=== PATIENT | female | born 1985 | race Caucasian/White ===

== ENCOUNTER 2017-01-24 14:11 | Emergency (ER) | payer SELFPAY ==
--- NOTE | 2017-01-24 15:05 | ER Document Report ---
ED Medical Screen (RME) - General Time seen by provider: 15:03 Mode of Arrival: Ambulatory - General Chief Complaint: Flu Symptoms Stated Complaint: COUGH Notes: 32-year-old female presents to ED for flulike symptoms with a sore throat since Sunday. They got worse 3 days ago. I have greeted and performed a rapid initial assessment of this patient. A comprehensive ED assessment and evaluation of the patient, analysis of test results and completion of medical decision making process will be conducted by an additional ED providers. (RADAMES PEREZ) - Related Data Allergies/Adverse Reactions: No Known Allergies Allergy (Unverified 01/24/17 15:03) Doctor's Discharge - Discharge Clinical Impression: Viral illness Condition: Stable Disposition: HOME, SELF-CARE Instructions: Acetaminophen, Viral Syndrome ([facility]) Additional Instructions: Viral Syndrome The physician has diagnosed a viral infection. Viruses not only cause "colds," but can cause many different symptoms including generalized aching, fever, headache, cough, diarrhea, nausea, vomiting, and fatigue. The treatment, for the most part, is simply relief of symptoms. This means that antibiotics are usually not given. Rest, fluids, pain medications and, occasionally, medication for the specific symptoms that are most bothersome will be prescribed. Use good handwashing to avoid passing the virus to others. Shared toys should be cleaned with disinfectant. Clean the toilets, sinks, and counter surfaces in bathrooms. Launder clothing in hot water. Contact the physician if you develop any new or unusual symptoms such as severe headache, stiff neck, high fever, chest pain, productive cough, or shortness of breath. You should be rechecked if you don't see marked improvement within seven to 10 days. Forms: Return to Work Referrals: [facility] [Provider Group] - Follow up in 3-5 days (Return to the ER sooner for increasing worsening or new symptoms)
[2017-01-24 16:56] LABS: APPEARANCE,URINE SLIGHTLY-CLOUDY; BILIRUBIN,URINE NEGATIVE (NEGATIVE); GLUCOSE, URINE NEGATIVE (NEGATIVE); KETONES,URINE 20 mg/dL (NEGATIVE); LEUKOCYTE ESTERASE,URINE NEGATIVE (NEGATIVE); NITRITE,URINE NEGATIVE (NEGATIVE); PROTEIN,URINE 30 mg/dL (NEGATIVE); URINE SPECIFIC GRAVITY 1.027
--- NOTE | 2017-01-24 17:34 | ER Document Report ---
ED General - General Mode of Arrival: Ambulatory Information source: Patient TRAVEL OUTSIDE OF THE [place] IN LAST 30 DAYS: No - HPI Patient complains to provider of: Body Aches Onset: Other - 5 days ago Associated symptoms: Other - see above - General Chief Complaint: Flu Symptoms Stated Complaint: COUGH Notes: 32-year-old female with history of heroin substance abuse presents to the ED complaining of generalized body aches, congestion, and cough for the past 5 days. Patient states that her body aches are "worse than usual". She states that she is and postacute withdrawal from her heroin. She last used on 2016. Patient is currently on Suboxone, prazosin, and Adderall. Patient has a history of aspiration pneumonia 1 year ago. (NADEEM CHAPARRO) - Related Data Allergies/Adverse Reactions: No Known Allergies Allergy (Unverified 01/24/17 15:03) Past Medical History - General Information source: Patient - Social History Smoking Status: Current Every Day Smoker Frequency of alcohol use: None Drug Abuse: Heroin - past Family History: Reviewed & Not Pertinent Patient has suicidal ideation: No Patient has homicidal ideation: No Pulmonary Medical History: Reports: Hx Pneumonia - aspiration in 2016 Renal/ Medical History: Denies: Hx Peritoneal Dialysis Surgical Hx: Negative Review of Systems - Review of Systems Constitutional: See HPI, Malaise EENT: See HPI, Nose congestion Cardiovascular: No symptoms reported Respiratory: See HPI, Cough Gastrointestinal: No symptoms reported Genitourinary: No symptoms reported Female Genitourinary: No symptoms reported Musculoskeletal: No symptoms reported Skin: No symptoms reported Hematologic/Lymphatic: No symptoms reported Neurological/Psychological: No symptoms reported -: Yes All other systems reviewed and negative Physical Exam - General General appearance: Alert In distress: None - HEENT Head: Normocephalic, Atraumatic Eyes: Normal Extraocular movements intact: Yes Pupils: PERRL Mouth/Lips: Normal Pharynx: Normal - Respiratory Respiratory status: No respiratory distress Breath sounds: Rhonchi - bilateral, Wheezing - occassional. No: Normal - Cardiovascular Rhythm: Regular Heart sounds: Normal auscultation - Abdominal Inspection: Normal Distension: No distension Tenderness: Nontender - Back Back: Normal - Extremities General upper extremity: Normal inspection, Normal ROM General lower extremity: Normal inspection, Normal ROM - Neurological Neuro grossly intact: Yes Cognition: Normal Orientation: AAOx4 [place] Coma Scale Eye Opening: Spontaneous Valeria Coma Scale Verbal: Oriented Val[place] Coma Scale Motor: Obeys Commands Valeria Coma Scale Total: 15 Speech: Normal - Psychological Associated symptoms: Normal affect, Normal mood - Skin Skin Temperature: Warm Skin Moisture: Dry Skin Color: Normal Course - Re-evaluation Re-evalutation: 01/24/17 18:27 I personally performed the services described in the documentation, reviewed and edited the documentation which was dictated to my scribe in my presence, and it accurately records my words and actions. Patient presents with a three-day history of cough congestion nasal drainage mucous cold sweaty and weak dehydrated nausea but no vomiting no chance of . 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 She says she hasn't used since she right 20th she is well-appearing nontoxic afebrile slightly tachycardic initially on arrival improved at the bedside. She denies being in withdrawal. Chest x-ray labs flu all negative for DC upper respiratory illness supportive care and discussed reasons for ED return sooner (STEPHANIE NELSON) - Vital Signs Vital signs: Temp Pulse Resp BP Pulse Ox 98.6 F 67 16 118/67 99 01/24/17 18:40 01/24/17 18:40 01/24/17 18:40 01/24/17 18:40 01/24/17 18:40 - Laboratory Laboratory results interpreted by me: 01/24/17 16:25 Urine Protein 30 H Urine Ketones 20 H Urine Urobilinogen 4.0 H Discharge - Discharge Clinical Impression: Viral infection Condition: Stable Disposition: HOME, SELF-CARE Instructions: Acetaminophen, Viral Syndrome ([facility]) Additional Instructions: Viral Syndrome The physician has diagnosed a viral infection. Viruses not only cause "colds," but can cause many different symptoms including generalized aching, fever, headache, cough, diarrhea, nausea, vomiting, and fatigue. The treatment, for the most part, is simply relief of symptoms. This means that antibiotics are usually not given. Rest, fluids, pain medications and, occasionally, medication for the specific symptoms that are most bothersome will be prescribed. Use good handwashing to avoid passing the virus to others. Shared toys should be cleaned with disinfectant. Clean the toilets, sinks, and counter surfaces in bathrooms. Launder clothing in hot water. Contact the physician if you develop any new or unusual symptoms such as severe headache, stiff neck, high fever, chest pain, productive cough, or shortness of breath. You should be rechecked if you don't see marked improvement within seven to 10 days. Forms: Return to Work Referrals: [facility] [Provider Group] - Follow up in 3-5 days (Return to the ER sooner for increasing worsening or new symptoms) Scribe Documentation - Scribe Written by Kailee:: Kailee Addison, 01/24/20172020 acting as scribe for :: Magan
[2017-01-24 18:51] VITALS: BP 118/67
== END 2017-01-24 18:40 | disposition home or self-care (01) ==
LOC: ER 14:11
DX: B34.9 Viral infection, unspecified (principal); R05 Cough; R09.81 Nasal congestion; E86.0 Dehydration; R53.81 Other malaise; R06.2 Wheezing; R00.0 Tachycardia, unspecified; R61 Generalized hyperhidrosis; J34.89 Other specified disorders of nose and nasal sinuses; R53.1 Weakness; R11.0 Nausea; R52 Pain, unspecified; F17.200 Nicotine dependence, unspecified, uncomplicated; F11.21 Opioid dependence, in remission; Z79.891 Long term (current) use of opiate analgesic; Z87.01 Personal history of pneumonia (recurrent); Z79.899 Other long term (current) drug therapy
CPT/HCPCS: 71020; 81001; 87070; 87804; 87880; 99283

== ENCOUNTER 2017-02-12 20:48 | Emergency (ER) | payer SELFPAY ==
[2017-02-12 21:28] VITALS: BP 142/95
--- NOTE | 2017-02-13 00:10 | ER Document Report ---
ED Medical Screen (RME) - General Chief Complaint: Probable Seizure Stated Complaint: SEIZURE Mode of Arrival: Ambulatory Information source: Patient Notes: Pt presents with reports shes been having at least 5 seizures. She reports history of one seizure last year when she was coming off Xanax. She reports she feels like an electric shock is going thru her body. Reports it comes/goes. TRAVEL OUTSIDE OF THE [place] IN LAST 30 DAYS: No - Related Data Allergies/Adverse Reactions: No Known Allergies Allergy (Unverified 01/24/17 15:03) Past Medical History Pulmonary Medical History: Reports: Hx Pneumonia - aspiration in 2016 Renal/ Medical History: Denies: Hx Peritoneal Dialysis Physical Exam - Vital signs Vitals: Temp Pulse BP Pulse Ox 98.1 F 98 142/95 H 100 02/12/17 21:27 02/12/17 21:27 02/12/17 21:27 02/12/17 21:27 Course - Vital Signs Vital signs: Temp Pulse Resp BP Pulse Ox 98.1 F 98 142/95 H 100 02/12/17 21:27 02/12/17 21:27 02/12/17 21:27 02/12/17 21:27
== END 2017-02-13 00:20 | disposition left against medical advice (07) ==
LOC: ER 20:48
DX: R56.9 Unspecified convulsions (principal); Z53.20 Procedure and treatment not carried out because of patient's decision for unspecified reasons
CPT/HCPCS: 99281

== ENCOUNTER 2017-02-13 21:44 | Emergency (ER) | payer SELFPAY ==
[2017-02-14 04:25] LABS: APPEARANCE,URINE CLOUDY; BILIRUBIN,URINE NEGATIVE (NEGATIVE); GLUCOSE, URINE NEGATIVE (NEGATIVE); KETONES,URINE TRACE mg/dL (NEGATIVE); LEUKOCYTE ESTERASE,URINE MODERATE (NEGATIVE); NITRITE,URINE NEGATIVE (NEGATIVE); PROTEIN,URINE NEGATIVE (NEGATIVE); URINE SPECIFIC GRAVITY 1.018; UROBILINOGEN,URINE NEGATIVE mg/dL (<2.0)
[2017-02-14 04:38] LABS: URINE BARBITURATES SCREEN NEGATIVE; URINE METHADONE SCREEN NEGATIVE; URINE OPIATES LOW NEGATIVE; URINE PHENCYCLIDINE SCREEN NEGATIVE
[2017-02-14] MEDS ORDERED: NORMAL SALINE 1000 ML 1,000 ML IV PRN (06:22)
[2017-02-14 06:39] LABS: ABSOLUTE BASOPHILS # (AUTO) 0.1 10^3/uL (0.0-0.2); ABSOLUTE EOSINOPHILS # (AUTO) 0.4 10^3/uL (0.0-0.6); ABSOLUTE LYMPHOCYTES (AUTO) 5.3 10^3/uL (0.5-4.7); ABSOLUTE MONOCYTES (AUTO) 1.5 10^3/uL (0.1-1.4); ABSOLUTE NEUT (AUTO) 2.3 10^3/uL (1.7-8.2); BASOPHILS % (AUTO) 1.2 % (0-2); EOSINOPHILS % (AUTO) 4.4 % (0-6); HEMATOCRIT 42.4 % (36.0-47.0); HEMOGLOBIN 14.4 g/dL (12.0-15.5); HGB HCT DIFFERENCE 0.8; LYMPHOCYTES % (AUTO) 54.8 % (13-45); MEAN CORPUSCULAR HEMOGLOBIN 30.3 pg (27.0-33.4); MEAN CORPUSCULAR VOLUME 89 fl (80-97); MONOCYTES % (AUTO) 15.8 % (3-13); RED BLOOD COUNT 4.76 10^6/uL (3.72-5.28); RED CELL DISTRIBUTION WIDTH 14.7 % (11.5-14.0); SEGMENTED NEUTROPHILS % (AUTO) 23.8 % (42-78); WHITE BLOOD COUNT 9.7 10^3/uL (4.0-10.5)
[2017-02-14 07:28] LABS: ALANINE AMINOTRANSFERASE 18 U/L (9-52); ALKALINE PHOSPHATASE 85 U/L (38-126); ANION GAP 13 (5-19); ASPARTATE AMINO TRANSFERASE 27 U/L (14-36); BILIRUBIN,DIRECT 0.3 mg/dL (0.0-0.4); BILIRUBIN,TOTAL 0.3 mg/dL (0.2-1.3); BLOOD UREA NITROGEN 13 mg/dL (7-20); CALCIUM 9.4 mg/dL (8.4-10.2); CARBON DIOXIDE 23 mmol/L (22-30); CHLORIDE 106 mmol/L (98-107); CREATINE KINASE 55 U/L (30-135); CREATININE RESULT 0.58 mg/dL (0.52-1.25); GLUCOSE 118 mg/dL (75-110); LIPASE 147.3 U/L (23-300); POTASSIUM 4.3 mmol/L (3.6-5.0); SODIUM 141.5 mmol/L (137-145); TOTAL PROTEIN 7.2 g/dL (6.3-8.2)
[2017-02-14 08:07] VITALS: BP 122/74
--- NOTE | 2017-02-14 08:22 | ER Document Report ---
ED General - General Chief Complaint: Probable Seizure Stated Complaint: POSSIBLE SEIZURE TRAVEL OUTSIDE OF THE [place] 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 Possible Adderall. Patient states since she has been clean she is having episodes of activity where she "locks up eyes with your back and forth and she will become unresponsive. Patient states that she is aware of these episodes does not lose consciousness. Patient denies any fevers chills nausea vomiting recent head trauma denies a history of seizure activity. Patient states she's not had a her head scan and some time. - Related Data Allergies/Adverse Reactions: No Known Allergies Allergy (Verified 02/14/17 04:03) Past Medical History - Social History Smoking Status: Current Every Day Smoker Chew tobacco use (# tins/day): No Frequency of alcohol use: None Drug Abuse: None Family History: Reviewed & Not Pertinent Patient has suicidal ideation: No Patient has homicidal ideation: No Pulmonary Medical History: Reports: Hx Pneumonia - aspiration in 2016 Renal/ Medical History: Denies: Hx Peritoneal Dialysis Psychiatric Medical History: Reports: Hx Attention Deficit Hyperactivity Disorder Past Surgical History: Reports: Hx Tubal Ligation - Immunizations Hx Diphtheria, Pertussis, Tetanus Vaccination: Yes Review of Systems - Review of Systems Constitutional: No symptoms reported EENT: No symptoms reported Cardiovascular: No symptoms reported Respiratory: No symptoms reported Gastrointestinal: No symptoms reported Genitourinary: No symptoms reported Female Genitourinary: No symptoms reported Musculoskeletal: No symptoms reported Skin: No symptoms reported Hematologic/Lymphatic: No symptoms reported Neurological/Psychological: Other - Seizure-like activity Physical Exam - Vital signs Vitals: Temp Pulse Resp BP Pulse Ox 98.7 F 98 16 133/92 H 99 02/13/17 23:26 02/13/17 23:26 02/13/17 23:26 02/13/17 23:26 02/13/17 23:26 Interpretation: Normal - General General appearance: Appears well, Alert - HEENT Head: Normocephalic, Atraumatic Eyes: Normal Pupils: PERRL - Respiratory Respiratory status: No respiratory distress Chest status: Nontender Breath sounds: Normal Chest palpation: Normal - Cardiovascular Rhythm: Regular Heart sounds: Normal auscultation Murmur: No - Abdominal Inspection: Normal Distension: No distension Bowel sounds: Normal Tenderness: Nontender Organomegaly: No organomegaly - Back Back: Normal, Nontender - Extremities General upper extremity: Normal inspection, Nontender, Normal color, Normal ROM , Normal temperature General lower extremity: Normal inspection, Nontender, Normal color, Normal ROM , Normal temperature, Normal weight bearing. No: Liliana's sign - Neurological Neuro grossly intact: Yes Cognition: Normal Orientation: AAOx4 Valeria Coma Scale Eye Opening: Spontaneous [place] Coma Scale Verbal: Oriented Valeria Coma Scale Motor: Obeys Commands [place] Coma Scale Total: 15 Speech: Normal Motor strength normal: LUE, RUE, LLE, RLE Sensory: Normal - Psychological Associated symptoms: Normal affect, Normal mood - Skin Skin Temperature: Warm Skin Moisture: Dry Skin Color: Normal Course - Re-evaluation Re-evalutation: 02/14/17 14:09 Patient coming in for evaluation of possible seizure-like activity. More likely possible conversion disorder. Patient has had no episodes here in the ER looks to be neurologically intact lab work and workup here shows no critical etiology patient was discharged home follow-up with the [facility] [place] and neurology. - Vital Signs Vital signs: Temp Pulse Resp BP Pulse Ox 98.8 F 98 19 122/74 98 02/14/17 08:02 02/13/17 23:26 02/14/17 08:02 02/14/17 08:02 02/14/17 08:01 - Laboratory Result Diagrams: 02/14/17 06:15 02/14/17 06:15 Laboratory results interpreted by me: 02/14/17 02/14/17 02/14/17 04:10 06:15 06:15 RDW 14.7 H Seg Neutrophils % 23.8 L Lymphocytes % 54.8 H Monocytes % 15.8 H Absolute Lymphocytes 5.3 H Absolute Monocytes 1.5 H Glucose 118 H Urine Ketones TRACE H Ur Leukocyte Esterase MODERATE H Discharge - Discharge Clinical Impression: Seizure-like activity Condition: Good Disposition: HOME, SELF-CARE Instructions: Neurologist Additional Instructions: Your labwork today showed no critical etiology for symptoms. I recommend following up with the clinics provided for possible referral to a neurologist. Please continue your medications as prescribed. Please follow-up with your prescribing physician as needed. Prescriptions: Gabapentin [Neurontin 100 mg Capsule] 100 mg PO TID #60 capsule Forms: Return to Work
== END 2017-02-14 08:45 | disposition home or self-care (01) ==
LOC: ER 21:44
DX: R56.9 Unspecified convulsions (principal); Z79.899 Other long term (current) drug therapy; F17.200 Nicotine dependence, unspecified, uncomplicated
CPT/HCPCS: 36415; 70450; 80053; 80307; 81001; 81025; 82550; 83690; 85025; 99284